=== PATIENT | male | born 1980 | race Caucasian/White ===

== ENCOUNTER 2021-04-07 14:00 | Emergency (ER) | payer OTHER ==
[~2021-04-07] VITALS: Ht 188 cm; Wt 90.7 kg
--- NOTE | 2021-04-07 14:16 | NUR ---
[employer] In Custody Escorted by Officer Moisés [id number] For OK to Book. The patient denies pain. In room air and denies SOB. Respiration regular and unlabored. Will continue to monitor the patient
--- NOTE | 2021-04-07 14:29 | NUR ---
Patient discharged in stable condition with [employer]. Written and verbal after care instructions given. Patient and [employer] officers verbalize understanding of instruction.
[2021-04-07 14:31] VITALS: BP 160/90
== END 2021-04-07 14:31 ==
LOC: ER 14:07
DX: F20.9 Schizophrenia, unspecified (principal); I10 Essential (primary) hypertension

== ENCOUNTER 2022-07-14 16:11 | Emergency (ER) | payer OTHER ==
[~2022-07-14] VITALS: Ht 190.5 cm; Wt 95.3 kg
[2022-07-14 16:24] VITALS: BP 117/104
--- NOTE | 2022-07-14 16:45 | NUR ---
Provider NUNO Ochoa at bedside
[2022-07-14] MEDS ORDERED: clonazePAM 1 MG TABLET PO ONE (17:00)
--- NOTE | 2022-07-14 17:01 | NUR ---
patient eloped. MD/[employer] notified
== END 2022-07-14 17:03 | disposition left against medical advice (07) ==
LOC: EDUNIT# 16:11 → ER 16:19
DX: F41.9 Anxiety disorder, unspecified (principal); I10 Essential (primary) hypertension; Z59.00 Homelessness unspecified

== ENCOUNTER 2023-05-16 13:45 | Emergency (ER) | payer OTHER ==
[~2023-05-16] VITALS: Ht 190.5 cm; Wt 90.7 kg
[2023-05-16 14:46] VITALS: BP 134/69; TEMP 98.1; O2SAT 99
[2023-05-16] MEDS ORDERED: OLAN20TA3 PO (15:05)
[2023-05-16] MEDS ORDERED: ESCI20TA PO (15:05)
== END 2023-05-16 16:03 | disposition home or self-care (01) ==
LOC: ER 13:52
DX: F22 Delusional disorders (principal); J06.9 Acute upper respiratory infection, unspecified; I10 Essential (primary) hypertension; Z79.899 Other long term (current) drug therapy; Z20.822 Contact with and (suspected) exposure to COVID-19; Z59.00 Homelessness unspecified
CPT/HCPCS: 71045-TC

== ENCOUNTER 2023-06-13 09:08 | Emergency (ER) | payer OTHER ==
[~2023-06-13] VITALS: Ht 190.5 cm; Wt 90.7 kg
[~2023-06-13 09:08] MED LIST: ESCI20TA PO; OLAN20TA3 PO
[2023-06-13 09:16] VITALS: BP 129/68; TEMP 98.6
[2023-06-13] MEDS ORDERED: LORA-258 PO (09:29)
[2023-06-13] MEDS ORDERED: LORAZEPAM 0.5 MG TABLET ONE (09:31)
[2023-06-13] MEDS: LORAZEPAM 1 MG TABLET PO ONE (09:33)
[2023-06-13 09:53] VITALS: O2SAT 100
== END 2023-06-13 09:55 | disposition home or self-care (01) ==
LOC: ER 09:10
DX: F41.9 Anxiety disorder, unspecified (principal); Z76.0 Encounter for issue of repeat prescription; I10 Essential (primary) hypertension; Z59.01 Sheltered homelessness

== ENCOUNTER 2023-07-23 11:37 | Emergency (ER) | payer OTHER ==
[~2023-07-23] VITALS: Ht 190.5 cm; Wt 91.2 kg
[~2023-07-23 11:37] MED LIST changes: +LORA-258 PO
[2023-07-23] MEDS ORDERED: CLON1TAB12 PO (12:09)
[2023-07-23] MEDS ORDERED: QUET300T5 PO (12:09)
[2023-07-23 12:29] VITALS: BP 115/75; TEMP 98; O2SAT 99
== END 2023-07-23 12:30 | disposition home or self-care (01) ==
LOC: ER 11:40
DX: F41.9 Anxiety disorder, unspecified (principal); F20.9 Schizophrenia, unspecified; R00.2 Palpitations; R06.02 Shortness of breath; I10 Essential (primary) hypertension; G47.00 Insomnia, unspecified; Z76.0 Encounter for issue of repeat prescription; Z59.01 Sheltered homelessness

== ENCOUNTER 2023-08-24 11:05 | Emergency (ER) | payer OTHER ==
[~2023-08-24] VITALS: Ht 190.5 cm; Wt 93.0 kg
[~2023-08-24 11:05] MED LIST changes: +CLON1TAB12 PO; +QUET300T5 PO
[2023-08-24 11:33] VITALS: BP 130/79; TEMP 97.8
[2023-08-24 11:49] VITALS: O2SAT 100
== END 2023-08-24 11:50 | disposition left against medical advice (07) ==
LOC: ER 11:35
DX: F41.9 Anxiety disorder, unspecified (principal); Z53.21 Procedure and treatment not carried out due to patient leaving prior to being seen by health care provider